=== PATIENT | male | born 1975 | race Caucasian/White ===

== ENCOUNTER 2016-11-02 09:48 | Outpatient (CLI) | payer OTHER | END 2016-11-02 09:49 | disposition home or self-care (01) | LOC: SC 09:48 | PROVIDERS: ATTEND Nurse Practitioner Family | DX: G47.33 Obstructive sleep apnea (adult) (pediatric) (principal) | CPT/HCPCS: 99212; 99214 ==

== ENCOUNTER 2016-12-27 09:58 | Outpatient (CLI) | payer OTHER | END 2016-12-27 09:59 | disposition home or self-care (01) | LOC: SC 09:58 | PROVIDERS: ATTEND Nurse Practitioner Family | DX: G47.33 Obstructive sleep apnea (adult) (pediatric) (principal) | CPT/HCPCS: 99212; 99214 ==

== ENCOUNTER 2017-02-09 08:51 | Outpatient (CLI) | payer OTHER | END 2017-02-09 08:52 | disposition home or self-care (01) | LOC: SC 08:51 | PROVIDERS: ATTEND Nurse Practitioner Family | DX: G47.33 Obstructive sleep apnea (adult) (pediatric) (principal) | CPT/HCPCS: 99212; 99214 ==

== ENCOUNTER 2017-04-05 08:19 | Outpatient (CLI) | payer OTHER | END 2017-04-05 08:20 | disposition home or self-care (01) | LOC: SC 08:19 | PROVIDERS: ATTEND Nurse Practitioner Family | DX: G47.33 Obstructive sleep apnea (adult) (pediatric) (principal) | CPT/HCPCS: 99212; 99214 ==

== ENCOUNTER 2017-05-23 11:19 | Outpatient (CLI) | payer OTHER | END 2017-05-23 11:20 | disposition home or self-care (01) | LOC: SC 11:19 | PROVIDERS: ATTEND Nurse Practitioner Family | DX: G47.33 Obstructive sleep apnea (adult) (pediatric) (principal) | CPT/HCPCS: 99212; 99214 ==

== ENCOUNTER 2017-08-22 10:50 | Outpatient (CLI) | payer OTHER | END 2017-08-22 10:51 | disposition home or self-care (01) | LOC: SC 10:50 | PROVIDERS: ATTEND Nurse Practitioner Family | DX: G47.33 Obstructive sleep apnea (adult) (pediatric) (principal) | CPT/HCPCS: 99212; 99213 ==

== ENCOUNTER 2017-11-17 11:15 | Outpatient (CLI) | payer OTHER | END 2017-11-17 11:16 | disposition home or self-care (01) | LOC: SC 11:15 | PROVIDERS: ATTEND Nurse Practitioner Family | DX: G47.33 Obstructive sleep apnea (adult) (pediatric) (principal) | CPT/HCPCS: 99212; 99214 ==